=== PATIENT | female | born 1945 | race Caucasian/White ===

== ENCOUNTER → 2017-01-19 | Outpatient (CLI) | payer OTHER, MEDICARE | LOC: RAD 08:40 | DX: Z12.31 Encounter for screening mammogram for malignant neoplasm of breast (principal) ==

== ENCOUNTER → 2018-01-29 | Outpatient (CLI) | payer OTHER, MEDICARE | LOC: RAD 01:06 | DX: Z12.31 Encounter for screening mammogram for malignant neoplasm of breast (principal) ==

== ENCOUNTER → 2019-02-22 | Outpatient (CLI) | payer OTHER, MEDICARE | LOC: RAD 13:43 | DX: Z12.31 Encounter for screening mammogram for malignant neoplasm of breast (principal) ==

== ENCOUNTER → 2020-02-12 | Outpatient (CLI) | payer OTHER, MEDICARE | LOC: RAD 10:56 | PROVIDERS: ATTEND Internal Medicine | DX: M81.0 Age-related osteoporosis without current pathological fracture (principal); M85.88 Other specified disorders of bone density and structure, other site ==

== ENCOUNTER → 2020-03-16 | Outpatient (CLI) | payer OTHER, MEDICARE | LOC: RAD 08:07 | PROVIDERS: ATTEND Internal Medicine | DX: Z12.31 Encounter for screening mammogram for malignant neoplasm of breast (principal) ==

== ENCOUNTER → 2021-01-19 | Outpatient (CLI) | payer OTHER, MEDICARE ==
[~2021-01-19] VITALS: Ht 157.5 cm; Wt 46.7 kg
[~2021-01-19] MED LIST: PROBIOTIC1 EAC7 PO; VITAMIN B-121000 MC2 SUBLING; VITAMIN C500 M1 PO; VITAMIN D325 MC3 PO; VITAMIN E400 UNIT PO
--- NOTE | 2021-01-21 18:06 | PATH ---
[facility] [address] [place] [address] PATHOLOGY RPT PROCEDURE Name: JOHNNA ANDRADE Room #: [facility] MMicheal.#: [id number] Admission: 01/19/21 Date of : 41 Discharge: Report #: [id number] Path Case #: [id number] [facility] Accession Number: [id number] . 01 Material submitted: . colon - ASCENDING COLON POLYP. Modifiers: ascending . 01 Clinical history: . 3 YR FO HX POLYPS DIVERTICULOSIS, COLON POLYPS, INTERNAL HEMORRHOIDS . 02 Diagnosis: Polyp, ascending colon polyp, endoscopic biopsy: - Tubular adenoma. - Negative for high-grade dysplasia. ([facility]; 01/21/2021) QMS 01/21/2021 1325 Local . 02 Electronically signed: . Judy Wadsworth MD, Pathologist NPI- [id number] . 01 Gross description: . Received in formalin labeled "Stalin, Johnna, ascending colon polyp biopsy" are multiple galicia-brown soft tissue fragments measuring in aggregate 0.7 x 0.4 x 0.2 cm. The specimen is submitted entirely in A1. ([facility]; 01/20/2021) GZA/GZA 01/20/2021 1655 Local . 02 Pathologist provided ICD-10: D12.2 . 02 CPT . 249751 Specimen Comment: A courtesy copy of this report has been sent to [phone], [phone] Specimen Comment: [phone] Specimen Comment: Report sent to / DR RANGEL Performed at: [address], [place] [id number] MD Alvaro Lopez MD Phone: [phone] Performed at: [address] [id number] MD Judy Wadsworth MD Phone: [phone]
== END | disposition home or self-care (01) ==
LOC: GI 09:04
PROVIDERS: ATTEND Internal Medicine Gastroenterology
DX: Z12.11 Encounter for screening for malignant neoplasm of colon (principal); Z86.010 Personal history of colon polyps; D12.2 Benign neoplasm of ascending colon; K57.30 Diverticulosis of large intestine without perforation or abscess without bleeding; K64.8 Other hemorrhoids; Z98.890 Other specified postprocedural states; Z79.899 Other long term (current) drug therapy; Z87.891 Personal history of nicotine dependence; Z85.828 Personal history of other malignant neoplasm of skin
CPT/HCPCS: 62110; 62900

== ENCOUNTER → 2021-03-29 | Outpatient (CLI) | payer OTHER, MEDICARE | LOC: BC 12:58 | PROVIDERS: ATTEND Internal Medicine | DX: Z12.31 Encounter for screening mammogram for malignant neoplasm of breast (principal) ==